=== PATIENT | female | born 1995 | race Hispanic/Latino ===

== ENCOUNTER 2024-06-23 07:49 | Observation (INO) | payer BC, MEDICAID ==
[~2024-06-23] VITALS: Ht 165.1 cm; Wt 105.2 kg
[2024-06-23 07:56] VITALS: BP 138/86; PULSE 94; RESP 18; TEMP 98.7
[2024-06-23 08:37] LABS: APPEARANCE,URINE CLOUDY (CLEAR); BILIRUBIN,URINE NEGATIVE (NEGATIVE); COLOR,URINE LIGHT-YELLOW (YELLOW); GLUCOSE, URINE (UA) NEGATIVE (NEGATIVE); KETONES,URINE NEGATIVE (NEGATIVE); LEUKOCYTE ESTERASE ,URINE 75 Leu/uL (NEGATIVE); NITRATE,URINE NEGATIVE (NEGATIVE); PH,URINE 6.5 (5.0-8.0); PROTEIN,URINE NEGATIVE (NEGATIVE); UROBILINOGEN,URINE 0.2 mg/dL (0.2-1.0)
[2024-06-23 08:39] LABS: ADD UA MICROSCOPIC YES
[2024-06-23 08:42] LABS: OTHER CASTS, URINE 3 /LPF (None Seen); RBC,URINE 0-1 /HPF (0-1); SQUAMOUS EPITHELIAL CELL,UR MANY /HPF (0-2)
[2024-06-23] MEDS ORDERED: LACTATED RINGERS 1000ML 1,000 ML IV PRN (09:00)
[2024-06-23] MEDS ORDERED: DINOPROSTONE 10 MG VAGINAL SUPP VG ONE (09:30)
[2024-06-24] MEDS ORDERED: PREN1TAB80 PO (12:33)
== END 2024-06-23 10:05 | disposition home or self-care (01) ==
LOC: EDH 07:49 → LDH 07:50
PROVIDERS: ADMIT Obstetrics & Gynecology; ATTEND Obstetrics & Gynecology
DX: O26.893 Other specified pregnancy related conditions, third trimester (principal); R10.9 Unspecified abdominal pain; Z3A.40 40 weeks gestation of pregnancy
CPT/HCPCS: 59025; 87086; 81001; 76805; G0378 ×2

== ENCOUNTER 2024-06-23 19:36 | Inpatient (IN) | payer BC, MEDICAID ==
[~2024-06-23] VITALS: Ht 165.1 cm; Wt 105.7 kg
[~2024-06-23 19:36] MED LIST: OXYTOCIN 10 USP UNITS/ML IM ONE
[2024-06-23 20:53] LABS: HEMATOCRIT 33.4 % (36-48); MEAN CORPUSCULAR HEMOGLOBIN 29.9 pg (27.0-33.0); MEAN CORPUSCULAR HGB CONC 34.1 g/dL (32.0-36.0); MEAN CORPUSCULAR VOLUME 87.7 fL (79-99); RED BLOOD CELL COUNT(AUTO) 3.81 MIL/uL (4.00-5.50); RED CELL DISTRIBUTION WIDTH 12.9 % (11.0-15.5); WHITE BLOOD COUNT (AUTO) 10.9 K/uL (4.8-10.8)
[2024-06-23 21:30] LABS: HIV 1&2 ANTIBODY Non-Reactive (Negative); HIV-1 p24 Antigen Non-Reactive (Negative)
[2024-06-23 23:25] LABS: RAPID PLASMA REAGIN NONREACTIVE (NONREACTIVE)
[2024-06-24] MEDS ORDERED: MISOPROSTOL 200 MCG TABLET ONE (03:31)
[2024-06-24] MEDS ORDERED: LIDOCAINE HCL 1% 20 ML VIAL ONE (03:35)
[2024-06-24] MEDS: LACTATED RINGERS 1000ML 1,000 ML IV PRN (06:19)
[2024-06-24] MEDS: OXYTOCIN-LR 30 UNITS/500ML 500 ML IV SCH (06:21)
[2024-06-24] MEDS ORDERED: OXYTOCIN-LR 30 UNITS/500ML 500 ML IV SCH ×2 (06:30→07:30)
[2024-06-24] MEDS ORDERED: OXYTOCIN 10 USP UNITS/ML IV SCH (07:00)
[2024-06-24] MEDS ORDERED: MEASLES/MUMPS/RUBELLA VACCINE, LIVE 0.5 ML/VIAL SQ PRN (07:30)
[2024-06-24] MEDS ORDERED: LACTATED RINGERS IV ONE (07:30)
[2024-06-24] MEDS ORDERED: acetaMINOPHEN WITH coDEINE 1 TAB TAB PO PRN (07:30)
[2024-06-24] MEDS ORDERED: acetaMINOPHEN 325 MG TAB PO PRN (07:30)
[2024-06-24] MEDS ORDERED: DIPH,PERTUSS(ACELL),TET VAC/PF 0.5 ML VIAL IM PRN (07:30)
[2024-06-24] MEDS ORDERED: OXYTOCIN IV ONE (07:30)
[2024-06-24] MEDS ORDERED: OXYTOCIN-LR 30 UNITS/500ML 500 ML IV ONE (09:02)
[2024-06-24 09:45] VITALS: BP 121/70; PULSE 85; RESP 20; TEMP 98.1
[2024-06-24] MEDS: WITCH HAZEL 1 PAD TP PRN (10:34)
[2024-06-24] MEDS: LANOLIN 30GM OINTMENT TP PRN (10:35)
[2024-06-24] MEDS: BENZOCAINE/LANOLIN/ALOE VERA 60 ML AEROSOL TP PRN (10:35)
[2024-06-24] MEDS: doCUSate SODIUM 100 MG CAP PO SCH (10:38)
[2024-06-24 12:00] VITALS: BP 121/65; PULSE 76; RESP 20; TEMP 98.7
[2024-06-24] MEDS ORDERED: PREN1TAB80 PO (12:33)
[2024-06-24 16:00] VITALS: BP 122/67; PULSE 82; RESP 18; TEMP 97.8
[2024-06-24 19:40] VITALS: BP 128/76; PULSE 74; RESP 20; TEMP 98
[2024-06-24 23:03] VITALS: BP 125/69; PULSE 85; TEMP 98.3
[2024-06-25 07:20] VITALS: BP 120/76; PULSE 73; RESP 20; TEMP 98.6
[2024-06-25 07:48] LABS: HEMATOCRIT 29.5 % (36-48); MEAN CORPUSCULAR HEMOGLOBIN 30.4 pg (27.0-33.0); MEAN CORPUSCULAR HGB CONC 34.2 g/dL (32.0-36.0); MEAN CORPUSCULAR VOLUME 88.9 fL (79-99); RED BLOOD CELL COUNT(AUTO) 3.32 MIL/uL (4.00-5.50); RED CELL DISTRIBUTION WIDTH 13.2 % (11.0-15.5); WHITE BLOOD COUNT (AUTO) 12.4 K/uL (4.8-10.8)
[2024-06-25] MEDS: IBUPROFEN 600 MG TABLET PO PRN (09:13)
[2024-06-25 11:20] VITALS: BP 122/77; PULSE 70; RESP 18; TEMP 98.2
[2024-06-25 15:17] VITALS: BP 118/74; PULSE 72; RESP 18; TEMP 98.2
[2024-06-25 20:10] VITALS: BP 146/83; PULSE 75; RESP 18; TEMP 98.3
[2024-06-25 23:50] VITALS: BP 113/55; PULSE 81; RESP 17; TEMP 97.6
[2024-06-26 03:40] VITALS: BP 120/67; PULSE 89; RESP 17; TEMP 98.1
[2024-06-26 07:20] VITALS: BP 127/87; PULSE 75; RESP 18; TEMP 98.1
[2024-06-26 11:20] VITALS: BP 127/77; PULSE 83; RESP 18; TEMP 98.3
== END 2024-06-26 13:45 | disposition home or self-care (01) | DRG 807 ==
LOC: EDH 19:36 → OBSVTOIN 19:37 → LDH 19:37 → WSH 06-24 09:51
PROVIDERS: ADMIT Obstetrics & Gynecology; ATTEND Obstetrics & Gynecology
PROC: 0W8NXZZ Division of Female Perineum, External Approach (ICD-10-PCS; principal; 2024-06-24)
PROC: 10E0XZZ Delivery of Products of Conception, External Approach (ICD-10-PCS; 2024-06-24)
DX: O69.81X0 Labor and delivery complicated by cord around neck, without compression, not applicable or unspecified (principal); Z37.0 Single live birth; O48.0 Post-term pregnancy; O70.1 Second degree perineal laceration during delivery; Z3A.40 40 weeks gestation of pregnancy
CPT/HCPCS: 36415; 82120; 85027; 86592; 86701; 86850; 86900; 86901; 87340; 87390; A4351; G0378; J2590